=== PATIENT | male | born 1975 | race Hispanic/Latino ===

== ENCOUNTER 2017-12-26 17:00 | Emergency (ER) | payer SELFPAY ==
[2017-12-26] MEDS ORDERED: Albuterol Sulfate 2.5 mg/3 ml Neb ONE (17:22)
[2017-12-26] MEDS ORDERED: Magnesium 2 GM/50 ML BAG (IN WATER) ONE (17:42)
[2017-12-26] MEDS ORDERED: Dexamethasone 10 MG/ML VIAL ONE (17:42)
--- NOTE | 2017-12-26 17:51 | RAD ---
PORTABLE UPRIGHT FRONTAL CHEST RADIOGRAPH: 12/26/2017 HISTORY: Shortness of breath. Breathing difficulty. COMPARISON: None. FINDINGS: No pneumothorax, pleural fluid, focal consolidation, or alveolar edema. Heart and mediastinal contou rs appear grossly unremarkable. IMPRESSION: No acute findings. POS: [facility]
== END 2017-12-26 19:00 | disposition home or self-care (01) ==
LOC: ERS 17:00 → EDBD 17:00 → ERS 19:00
DX: J45.901 Unspecified asthma with (acute) exacerbation (principal); F17.200 Nicotine dependence, unspecified, uncomplicated; Z79.899 Other long term (current) drug therapy
CPT/HCPCS: 71045; 93005; 94644; 96365; 96375; J1100; J7611; J7620

== ENCOUNTER 2018-02-20 15:24 | Emergency (ER) | payer SELFPAY ==
[2018-02-20 16:56] LABS: #Basophils 0.1 thou/uL (0.0-0.2); #Eosinphils 0.4 thou/uL (0.0-0.7); #Lymphocytes 2.6 thou/uL (1.20-3.40); #Monocytes 0.9 thou/uL (0.11-0.59); #Neutrophils 2.9 thou/uL (1.40-6.50); %Basophils 1.4 % (0.0-1.0); %Eosinophils 5.6 % (0.0-10.0); %Lymphocytes 38.2 % (21.0-51.0); %Monocytes 12.5 % (0.0-10.0); %Neutrophils 42.3 % (42.0-75.0); Hemoglobin 15.9 g/dL (14.0-18.0); Mean Corpuscular HGB CONC 34.7 g/dL (32.0-36.0); Mean Corpuscular Hemoglobin 31.2 pg (27.0-31.0); Mean Platelet Volume 8.2 fL (7.4-10.4); Platelet Count 243 thou/uL (130-400); White Blood Cell (WBC) Count 6.8 thou/uL (4.8-10.8)
[2018-02-20 17:22] LABS: ALT (SGPT) 17 U/L (8-55); AST (SGOT) 12 U/L (5-34); Albumin 4.1 g/dL (3.5-5.0); Alkaline Phosphatase 51 U/L (40-150); Anion Gap 12 mmol/L (10-20); BUN (Urea Nitrogen) 19 mg/dL (8.9-20.6); Bilirubin, Total 0.3 mg/dL (0.2-1.2); Calc. Creatinine Clearance 0 mL/min (70-130); Calcium 9.5 mg/dL (7.8-10.44); Carbon Dioxide 27 mmol/L (22-29); Chloride 104 mmol/L (98-107); Estimated GFR-MDRD 79; Glucose 113 mg/dL (70-105); Lipase 29 U/L (8-78); Potassium 4.1 mmol/L (3.5-5.1); Protein, Total 7.1 g/dL (6.0-8.3); Sodium 139 mmol/L (136-145)
== END 2018-02-20 18:00 | disposition home or self-care (01) ==
LOC: ERS 15:24
DX: K42.9 Umbilical hernia without obstruction or gangrene (principal); Z71.6 Tobacco abuse counseling; J45.909 Unspecified asthma, uncomplicated; F17.210 Nicotine dependence, cigarettes, uncomplicated; Z79.51 Long term (current) use of inhaled steroids
CPT/HCPCS: 36415; 80053; 83690; 85025; 99406

== ENCOUNTER 2018-03-09 11:37 | Emergency (ER) | payer SELFPAY ==
[2018-03-09] MEDS ORDERED: Ketorolac Tromethamine 60 MG/2 ML VIAL ONE (13:08)
== END 2018-03-09 13:48 | disposition home or self-care (01) ==
LOC: ERS 11:37
DX: K42.9 Umbilical hernia without obstruction or gangrene (principal); Z71.6 Tobacco abuse counseling; J45.909 Unspecified asthma, uncomplicated; F17.210 Nicotine dependence, cigarettes, uncomplicated
CPT/HCPCS: 96372; 99406; J1885

== ENCOUNTER 2019-01-27 14:13 | Emergency (ER) | payer SELFPAY ==
[2019-01-27] MEDS ORDERED: methylPREDNISolone Sod Succ/PF 125 MG/2 ML VIAL ONE (14:21)
[2019-01-27] MEDS ORDERED: Magnesium 2 GM/50 ML BAG (IN WATER) ONE (14:21)
[2019-01-27] MEDS ORDERED: Albuterol Sulfate 2.5 mg/0.5 ml Neb ONE (14:32)
[2019-01-27] MEDS ORDERED: Albuterol Sulfate 2.5 mg/3 ml Neb ONE (14:32)
[2019-01-27 14:38] LABS: #Basophils 0.1 thou/uL (0.0-0.2); #Eosinphils 0.4 thou/uL (0.0-0.7); #Lymphocytes 3.1 thou/uL (1.20-3.40); #Monocytes 0.8 thou/uL (0.11-0.59); #Neutrophils 5.3 thou/uL (1.40-6.50); %Basophils 0.8 % (0.0-1.0); %Eosinophils 4.4 % (0.0-10.0); %Lymphocytes 31.9 % (21.0-51.0); %Neutrophils 54.9 % (42.0-75.0); Hemoglobin 17.3 g/dL (14.0-18.0); Mean Corpuscular Hemoglobin 29.8 pg (27.0-31.0); Mean Corpuscular Volume 87.7 fL (78.0-98.0); Mean Platelet Volume 8.5 fL (7.4-10.4); Platelet Count 312 thou/uL (130-400); RBC Distribution Width 12.1 % (11.5-14.5); Red Blood Cell (RBC) Count 5.79 mill/uL (4.70-6.10); White Blood Cell (WBC) Count 9.6 thou/uL (4.8-10.8)
--- NOTE | 2019-01-27 15:04 | RAD ---
EXAM: Portable chest PROVIDED CLINICAL HISTORY: Shortness of breath COMPARISON: 12/26/2017 FINDINGS: Cardiac and mediastinal silhouette is within normal limits. No focal consolidation, pleural fluid or pneumothorax evident. IMPRESSION: No evidence for an acute cardiopulmonary process.
[2019-01-27 15:08] LABS: ALT (SGPT) 17 U/L (8-55); AST (SGOT) 15 U/L (5-34); Albumin 4.7 g/dL (3.5-5.0); Alkaline Phosphatase 66 U/L (40-110); Anion Gap 13 mmol/L (10-20); BUN (Urea Nitrogen) 17 mg/dL (8.9-20.6); Bilirubin, Total 0.3 mg/dL (0.2-1.2); Calc. Creatinine Clearance 0 mL/min (70-130); Calcium 9.8 mg/dL (7.8-10.44); Carbon Dioxide 26 mmol/L (22-29); Chloride 108 mmol/L (98-107); Estimated GFR-MDRD Greater than 90; Globulin 3.2 g/dL (2.4-3.5); Glucose 105 mg/dL (70-105); Potassium 4.4 mmol/L (3.5-5.1); Protein, Total 7.9 g/dL (6.0-8.3); Sodium 143 mmol/L (136-145)
== END 2019-01-27 16:52 | disposition home or self-care (01) ==
LOC: ERS 14:13
DX: J45.901 Unspecified asthma with (acute) exacerbation (principal); F17.210 Nicotine dependence, cigarettes, uncomplicated
CPT/HCPCS: 71045; 80053; 83880; 84484; 85025; 93005; 94644; 96365; 96366; 96375; J2930; J3475; J7611; J7620

== ENCOUNTER 2019-04-25 18:16 | Emergency (ER) | payer SELFPAY ==
[2019-04-25] MEDS ORDERED: Magnesium 2 GM/50 ML BAG (IN WATER) ONE (18:21)
[2019-04-25] MEDS ORDERED: methylPREDNISolone Sod Succ/PF 125 MG/2 ML VIAL ONE (18:21)
[2019-04-25 18:34] LABS: #Basophils 0.1 thou/uL (0.0-0.2); #Eosinphils 0.9 thou/uL (0.0-0.7); #Lymphocytes 4.9 thou/uL (1.20-3.40); #Monocytes 1.2 thou/uL (0.11-0.59); #Neutrophils 6.7 thou/uL (1.40-6.50); %Basophils 0.8 % (0.0-1.0); %Eosinophils 6.5 % (0.0-10.0); %Lymphocytes 35.3 % (21.0-51.0); %Monocytes 8.4 % (0.0-10.0); Hemoglobin 18.1 g/dL (14.0-18.0); Mean Corpuscular HGB CONC 34.5 g/dL (32.0-36.0); Mean Corpuscular Hemoglobin 30.5 pg (27.0-31.0); Mean Corpuscular Volume 88.5 fL (78.0-98.0); Mean Platelet Volume 8.9 fL (7.4-10.4); Platelet Count 323 thou/uL (130-400); RBC Distribution Width 12.3 % (11.5-14.5); Red Blood Cell (RBC) Count 5.92 mill/uL (4.70-6.10); White Blood Cell (WBC) Count 13.7 thou/uL (4.8-10.8)
--- NOTE | 2019-04-25 18:45 | RAD ---
CHEST ONE VIEW: 04/25/19 INDICATION: 44-year-old male with history of asthma. COMPARISON: Prior exam dated 01/27/19. FINDINGS: There is no consolidation. The lung volumes appear symmetric. Heart size is normal. No pleural effusi on is evident. No pneumothorax is demonstrated. No acute osseous abnormality is noted. IMPRESSION: No acute cardiopulmonary abnormality. POS: [facility]
[2019-04-25 19:01] LABS: ALT (SGPT) 15 U/L (8-55); AST (SGOT) 14 U/L (5-34); Albumin 4.4 g/dL (3.5-5.0); Alkaline Phosphatase 56 U/L (40-110); Anion Gap 15 mmol/L (10-20); BUN (Urea Nitrogen) 10 mg/dL (8.9-20.6); Bilirubin, Total 0.3 mg/dL (0.2-1.2); Calc. Creatinine Clearance 0 mL/min (70-130); Calcium 9.3 mg/dL (7.8-10.44); Carbon Dioxide 23 mmol/L (22-29); Chloride 108 mmol/L (98-107); Estimated GFR-MDRD 88; Globulin 2.7 g/dL (2.4-3.5); Glucose 109 mg/dL (70-105); Potassium 4.2 mmol/L (3.5-5.1); Protein, Total 7.1 g/dL (6.0-8.3); Sodium 142 mmol/L (136-145)
--- NOTE | 2019-04-29 08:46 | EKG ---
Test Reason : SOB Blood Pressure : / mmHG Vent. Rate : 103 BPM Atrial Rate : 103 BPM P-R Int : 130 ms QRS Dur : 088 ms QT Int : 326 ms P-R-T Axes : 010 047 031 degrees QTc Int : 427 ms Sinus tachycardia Otherwise normal ECG Confirmed by ALVINO BATRES D.O. ([id number]), photography editor ERON TRUONG ([id number]) on 04/29/2019 8:45:29 AM Referred By: Confirmed By:ALVNIO BATRES D.O.
== END 2019-04-25 20:30 | disposition home or self-care (01) ==
LOC: ERS 18:16
DX: J45.901 Unspecified asthma with (acute) exacerbation (principal); F17.210 Nicotine dependence, cigarettes, uncomplicated; Z79.899 Other long term (current) drug therapy
CPT/HCPCS: 71045; 80053; 84484; 85025; 93005; 94644; 96365; 96375; J2930; J3475; J7620

== ENCOUNTER 2021-01-31 10:48 | Emergency (ER) | payer SELFPAY ==
[2021-01-31] MEDS ORDERED: methylPREDNISolone Sod Succ/PF 125 MG/2 ML VIAL ONE (11:12)
[2021-01-31] MEDS ORDERED: Albuterol 200 PUFF (6.7GM INHALER) ONE (11:22)
== END 2021-01-31 13:48 | disposition home or self-care (01) ==
LOC: ERS 10:48
DX: J45.901 Unspecified asthma with (acute) exacerbation (principal); F17.210 Nicotine dependence, cigarettes, uncomplicated
CPT/HCPCS: 71045; 93005; 94664; 96372; J2930